=== PATIENT | female | born 1990 | race Caucasian/White ===

== ENCOUNTER 2018-02-13 20:40 | Emergency (ER) | payer OTHER, SELFPAY ==
[2018-02-13 20:42] VITALS: BP 113/70; PULSE 88; RESP 17; TEMP 36.4; O2SAT 100; BMI 23.9
--- NOTE | 2018-02-13 21:48 | US_ITS ---
STUDY: VENOUS DOPPLER ULTRASOUND - LEFT LOWER EXTREMITY REASON FOR EXAM: Female, 28 years old. Left leg pain. TECHNIQUE: Ultrasound evaluation of the deep vein system to include gusman-scale imaging and compression was performed. Gusman-scale imaging and Doppler sonographic evaluation, including duplex spectral analysis and qualitative color flow sonography, was performed. COMPARISON: None. FINDINGS: Common Femoral Vein: Normal compression, spontaneity and augmentation. Normal color Doppler. Common Femoral Vein/Greater Saphenous Junction: Normal compression, spontaneity and augmentation. Normal color Doppler. Deep Femoral Vein: Normal compression, spontaneity and augmentation. Normal color Doppler. Femoral Proximal: Normal compression, spontaneity and augmentation. Normal color Doppler. Femoral Middle: Normal compression, spontaneity and augmentation. Normal color Doppler. Femoral Distal: Normal compression, spontaneity and augmentation. Normal color Doppler. Popliteal Vein: Normal compression, spontaneity and augmentation. Normal color Doppler. Posterior Tibial Vein: Normal compression and spontaneity . Peroneal Vein: Normal compression and spontaneity. Within the region of pain within the posterior thigh there are thrombosed superficial veins. US/Venous Duplex Imag/Limited/Uni IMPRESSION: Thrombosed superficial veins within the posterior thigh. No DVT. Electronically Signed: Kalani Perkins MD at 22:29 EDT Tel , Service support ,
--- NOTE | 2018-02-13 22:27 | ED.VISSUMM ---
- ER Visit Summary Date of Service: 02/13/18 Chief Complaint: [Swelling left leg] History of Present Illness: The patient is a 28 F [presents to the emergency department swelling to the left leg that she noticed yesterday. Patient states that she has varicose vein history. Patient has had superficial phlebitis with prior pregnancies. Patient denies any chest pain or shortness of breath. Patient is 28 weeks .] Physical Examination: [HEENT-PERRLA, EOMI. Cranial nerves II through XII grossly intact. TMs clear. Mucous membranes moist. No adenopathy. Cardiovascular-regular rate and rhythm without murmur or ectopy Lungs-clear to auscultation, chest wall stable without crepitus or subcu emphysema Abdomen-normoactive bowel sounds, soft, nontender, no rebound or rigidity, no peritoneal signs. Extremities-intact ?4, normal range of motion, normal pulses, atraumatic. Left leg-patient has multiple varicosities noted diffusely about the left leg. Patient has some swelling and firmness noted to the varicosities to the posterior distal left thigh with some faint erythema. Patient nervously intact distally.] Test Results: [Venous duplex of the left lower extremity showed superficial phlebitis no DVT noted.] Emergency Department Course and Treatment: [Patient advised to use warm compresses to the area. Given that she is 28 weeks I advised against anti-inflammatories.] Treatment Plan: [Patient to follow-up with her primary care physician within next 5-7 days.] Disposition: [Discharged to home in stable condition Impression: [Superficial thrombophlebitis left leg] This note was generated with [employer] dictation software. It may contain incorrect words, spelling, and punctuation that were not noted in review of the chart prior to signing ED Disposition - Plan for ED Patient: Chief Complaint: Lower Extremity Injury Referrals: Maico Bunch MD [Primary Care Provider] -
--- NOTE | 2018-02-13 22:29 | ED.DEP ---
ED Disposition - Plan for ED Patient: Chief Complaint: Lower Extremity Injury Instructions: ED Phlebitis Superficial Referrals: Maico Bunch MD [Primary Care Provider] - 5-7 Days
[2018-02-13 22:44] VITALS: BP 115/75; PULSE 65; RESP 17; O2SAT 99
== END 2018-02-13 22:47 | disposition home or self-care (01) ==
PROVIDERS: Emergency Provider Emergency Medicine; Family Provider Family Medicine; PCP Family Medicine
DX: O22.22 Superficial thrombophlebitis in pregnancy, second trimester (principal); I80.02 Phlebitis and thrombophlebitis of superficial vessels of left lower extremity; Z3A.28 28 weeks gestation of pregnancy
CPT/HCPCS: 93971; 99282

== ENCOUNTER 2020-09-07 18:58 | Emergency (ER) | payer OTHER, SELFPAY ==
[2020-09-07 18:59] VITALS: BP 111/68; PULSE 96; RESP 17; TEMP 36.2; O2SAT 99; BMI 24.6
--- NOTE | 2020-09-07 19:45 | ED.DCSUM_ITS ---
History of Present Illness Chief Complaint: Lower Extremity Injury Informant: Patient Narrative: Patient is a 30-year-old previously healthy female who presents to the emergency department at 23 weeks . This is her seventh . She was sent in by the jewelry engraver to evaluate for DVT. On the upper inner thigh she has had redness, swelling and pain. He does have a history of superficial blood clots during her pregnancies before in the past. She does have varicose veins of her lower extremities bilaterally. She denies having any chest pain or shortness of breath. No cough, cold, congestion. No fevers or chills. She denies any abdominal pain/cramping. No vaginal bleeding or discharge. She is not on any anticoagulation medications. Never treated medically for the superficial blood clots in her legs before. Past Medical History - Allergies and Home Meds Allergies/Adverse Reactions: Allergies No Known Allergies Allergy (Verified 09/07/20 18:59) Primary Care Physician: Maico Bunch MD [Primary Care Provider] - 3-5 Days Prior records reviewed: Yes Past Medical History: None Smoking Status: Never smoker Review of Systems All systems negative except as indicated General: Denies: Chills, Fever, Sweats Eyes: Denies: Visual changes - bilaterally, Diplopia ENT: Denies: Rhinorrhea, Sore throat Cardiovascular: Denies: Chest pain, Palpitations Respiratory: Denies: Dyspnea, Cough, Dyspnea on exertion Gastrointestinal: Denies: Abdominal pain, Nausea, Vomiting, Diarrhea Genitourinary: Denies: Dysuria, Hematuria, Frequency Musculoskeletal: Reports: Swelling, Extremity Pain. Denies: Back pain Skin: Denies: Rash, Wounds Neurological: Denies: Headache, Weakness, Numbness Physical Exam Vital Signs/Narrative: Vital Signs Temp Pulse Resp BP Pulse Ox 09/07/20 18:59 97.1 F L 96 17 111/68 99 Inital Vital Signs reviewed: Yes General: Well nourished, Well developed, No Acute Distress Head: Normocephalic, Atraumatic Eyes: Perrl, EOMI ENT: Moist mucous membranes, No rhinorrhea Neck: Supple, Nontender Cardiovascular: Regular rate, Regular rhythm, No murmurs Respiratory: No distress, CTA bilaterally, Chest nontender Abdomen: Soft, Nontender, Nondistended, Normal bowel sounds, - - Gravid abdomen Back: Nontender, Normal Inspection Extremities: - - Area of erythema, tenderness. This is overlying varicosities of the left upper medial thigh. No calf tenderness or peripheral edema. Neurovascular intact. 5 out of 5 muscle strength lower extremities. Skin: No rash Neurological: Alert, Oriented x3, Cranial nerves II-XII grossly intact, Normal Strength, Normal Sensation Psychological: Normal affect, Normal Mood Diagnostic/Tx/Re-eval - Medical Decision Making Patient presents the emergency department to be evaluated for potential DVT. Physical exam is consistent more with a superficial thrombophlebitis. Ultrasound of the lower extremity not show any evidence of DVT. It was consistent with superficial thrombophlebitis. Will recommend symptomatic treatment. Since she is she can take Tylenol but no anti- inflammatories. She is recommended to use warm compresses. She is to follow-up with her PCP. Warning signs and symptoms for which to return to the ED were discussed with her. She understands and is agreeable this plan. Patient discharged home in stable condition. ED Disposition - Plan for ED Patient: Disposition: Home or Assisted Living Diagnosis: Superficial thrombophlebitis during Instructions: ED Phlebitis Superficial Referrals: Maico Bunch MD [Primary Care Provider] - 3-5 Days
--- NOTE | 2020-09-07 19:48 | US_ITS ---
STUDY: VENOUS DOPPLER ULTRASOUND - LEFT LOWER EXTREMITY REASON FOR EXAM: Female, 30 years old. LT INNER UPPER THIGH REDNESS AND TENDERNESS PT 24 WEEKS TECHNIQUE: Ultrasound evaluation of the deep vein system to include gusman-scale imaging and compression was performed. Gusman-scale imaging and Doppler sonographic evaluation, including duplex spectral analysis and qualitative color flow sonography, was performed. COMPARISON: None. FINDINGS: Left inguinal lymphadenopathy is present which is likely reactive. The left greater saphenous vein is filled with thrombus compatible with superficial thrombophlebitis. Several superficial varicose veins are also seen in the left thigh. Common Femoral Vein: Normal compression, spontaneity and augmentation. Normal color Doppler. Common Femoral Vein/Greater Saphenous Junction: Normal compression, spontaneity and augmentation. Normal color Doppler. Femoral Proximal: Normal compression, spontaneity and augmentation. Normal color Doppler. Femoral Middle: Normal compression, spontaneity and augmentation. Normal color Doppler. Femoral Distal: Normal compression, spontaneity and augmentation. Normal color Doppler. Popliteal Vein: Normal compression, spontaneity and augmentation. Normal color Doppler. Posterior Tibial Vein: Normal compression, spontaneity and augmentation. Normal color Doppler. Peroneal Vein: Normal compression, spontaneity and augmentation. Normal color Doppler. The right common femoral vein was evaluated and is normal. US/Venous Duplex Imag/Limited/Uni IMPRESSION: 1. Superficial thrombophlebitis of the left greater saphenous vein. 2. Reactive lymphadenopathy in the left inguinal region. 3. No deep venous thrombosis of the left leg. Electronically Signed: Silas Barajas MD at 20:58 EDT , Service support ,
== END 2020-09-07 21:01 | disposition home or self-care (01) ==
PROVIDERS: Emergency Provider Emergency Medicine; PCP Family Medicine
DX: O22.22 Superficial thrombophlebitis in pregnancy, second trimester (principal); Z3A.24 24 weeks gestation of pregnancy
CPT/HCPCS: 93971; 99282

== ENCOUNTER 2020-11-06 13:41 | Emergency (ER) | payer OTHER, SELFPAY ==
[2020-11-06 13:41] VITALS: BP 131/66; PULSE 94; RESP 17; TEMP 36.3; O2SAT 100; BMI 27.4
--- NOTE | 2020-11-06 14:00 | VDLE_ITS ---
Reason For Study: Pain Procedure LEFT This is a venous duplex using B-mode, color GSV is normal. flow and spectral Doppler. CFV is compressible, spontaneous, phasic, Exam performed portable in ED. competent, and demonstrates normal A preliminary report was called and/or faxed augmentation. to [facility]. FV is compressible, spontaneous, phasic, competent and demonstrates normal augmentation. POP V is compressible, spontaneous, phasic, competent and demonstrates normal augmentation. T/P Trunk is compressible. PTV is compressible. LT PerV is compressible. Acute superficial vein thrombosis is noted in the left mid SSV. Thrombus filled varicose veins noted throughout mid calf surrounding SSV. Interpretation Summary There is no evidence of left lower extremity deep vein thrombosis. Superficial thrombophlebitis left mid small saphenous vein and varicosities throughout the left mid calf at the site of small saphenous vein involvement. Patent and compressible left great saphenous vein Ordering Physician: Joshua Uriostegui Referring Physician: Maico Bunch Performed By: Damaris Pearl RVT
--- NOTE | 2020-11-06 14:00 | ED.DCSUM_ITS ---
History of Present Illness Chief Complaint: Lower Extremity Injury Informant: Patient Onset: Days - 2-3 Context: Gradual Onset Timing: Continuous Quality of Pain: - - sore Location: left calf, more peroneally Current Severity: Moderate Maximum Severity: Moderate Worsened by: nothing Relieved by: nothing Associated Symptoms: Negative for: Parasthesia, Weakness, Loss of Funtion Narrative: 30-year-old female with a history of varicose veins has had superficial venous thromboses in the past, presenting with pain in her left calf that occurred spontaneously within the last couple days and she is concerned about a blood clot. No history of a DVT. She is having no symptoms above the knee. She has chronic mild swelling in both ankles that is unchanged. She denies any chest pain, shortness of breath, palpitations, near-syncope or syncope. - Past Medical History (1) Varicose veins of both lower extremities Status: Chronic (2) Superficial vein thrombosis Status: Chronic Past Medical History - Allergies and Home Meds Allergies/Adverse Reactions: Allergies No Known Allergies Allergy (Verified 11/06/20 13:41) Primary Care Physician: Maico Bunch MD [Primary Care Provider] - Lives: With Family Smoking Status: Never smoker Review of Systems General: Denies: Chills, Fever, Sweats Eyes: Denies: Visual changes - bilaterally, Diplopia ENT: Denies: Rhinorrhea, Sore throat Cardiovascular: Denies: Chest pain, Palpitations Respiratory: Denies: Dyspnea, Cough, Dyspnea on exertion Gastrointestinal: Denies: Abdominal pain, Nausea, Vomiting, Diarrhea, Melena, Hematochezia Genitourinary: Denies: Dysuria, Hematuria, Frequency Musculoskeletal: Reports: Swelling, Extremity Pain. Denies: Myalgias, Back pain Skin: Denies: Rash, Wounds Neurological: Denies: Headache, Weakness, Numbness Physical Exam Vital Signs/Narrative: Vital Signs Temp Pulse Resp BP Pulse Ox 11/06/20 13:41 97.3 F L 94 17 131/66 H 100 Inital Vital Signs reviewed: Yes - Extremity Exam Left Tib Fib: Edema - Trace bilateral nonpitting symmetric, - - Positive Homans with left calf tenderness. Multiple venous varicosities, no erythema or signs of cellulitis or obvious palpable superficial thrombosis, but coincides with te nder calf. No tenderness on the right. No palpable cords. No tenderness about the knee.. Negative for: Limited ROM General: Well nourished, Well developed, - - Well-appearing no distress Head: Normocephalic, Atraumatic ENT: No Trauma, Moist Mucous Membranes Respiratory: No distress Abdomen: Soft, Nontender, - - Distended above the umbilicus consistent with gravid uterus Neurological: Alert, Oriented x3, Cranial nerves II-XII grossly intact, Normal Strength, Normal Sensation, Normal Gait Psychological: Normal affect, Normal Mood Diagnostic/Tx/Re-eval - Medical Decision Making Preliminary interpretation of venous evaluation left lower extremity shows superficial venous thrombosis without any deep vein involvement. Patient was reassured, advised to take a baby aspirin daily, and apply warm compresses to the affected area. There is no evidence of cellulitis or indication for antibiotics at this time. We discussed reasons to return she is comfortable with that plan will get some aspirin on the way home. ED Disposition - Plan for ED Patient: Disposition: Home or Assisted Living Diagnosis: Superficial vein thrombosis Instructions: ED Thrombophlebitis, Superficial Referrals: Maico Bunch MD [Primary Care Provider] - 1 Week if not improving Additional Instructions: Take baby aspirin 1 tablet daily. Apply warm compresses to affected area several times daily.
[2020-11-06 16:06] VITALS: BP 121/99; PULSE 81; RESP 16; O2SAT 99
== END 2020-11-06 16:07 | disposition home or self-care (01) ==
PROVIDERS: Emergency Provider Emergency Medicine; PCP Family Medicine
DX: I82.812 Embolism and thrombosis of superficial veins of left lower extremity (principal); Z86.718 Personal history of other venous thrombosis and embolism
CPT/HCPCS: 93971; 99282

== ENCOUNTER 2023-08-14 16:45 | Outpatient (CLI) | payer OTHER, SELFPAY ==
[2023-08-14] VITALS (19 sets, daily range): BP systolic 129; BP diastolic 77; PULSE 85–108; O2SAT 93–99; BMI 25.7
[2023-08-14 18:29] LABS: ROM Internal Control Test YES-OK TO RESULT pt. (Internal QC)
[2023-08-14 18:30] LABS: ROM Patient Test Negative (Negative); Record Kit Lot#, ROM+ K1409
[2023-08-14 18:38] LABS: Fetal Fibronectin Negative
--- NOTE | 2023-08-14 19:25 | OB.TRI.HP_ITS ---
HPI - General HPI Narrative MAX DONIS, is a 33 F at 22.3 weeks gestation who presents stating she thinks her water broke. Patient receives care from screenplay writer in [place], [place]. She has been seen this but no ultrasound completed to date. History of 21 week IUFD delivery last year. Denies any contractions or vaginal bleeding. Positive movement. Maternal Data Information AKANKSHA Calculator Estimated Delivery Date Method Current WG Current Estimate 12/13/23 Manual 22w 5d PFSH PFSH Home Medications proGESTerone .2 timesw week 08/14/23 [History Last Taken 08/11/23 21:00 100] Allergy/AdvReac Type Severity Reaction Status Date / Time No Known Allergies Allergy Verified 08/14/23 17:12 Social History Smoking Status: Never smoker ROS Eyes Eyes: Denies blurry vision Cardiovascular Cardiovascular: Reports none; Denies chest pain at rest, chest pain with activity or dizziness Respiratory/Chest Respiratory/Chest: Denies cough or dyspnea Gastrointestinal Gastrointestinal: Reports none and other; Denies diarrhea or vomiting Genitourinary Genitourinary: Denies dysuria Musculoskeletal Musculoskeletal: Reports none Integumentary Integumentary: Reports none; Denies rash Neurologic Neurologic: Denies dizziness, headache(s) or other visual disturbances Psychiatric Psychiatric: Reports none Physical Exam Const alert and no apparent distress General Appearance: cooperative Orientation / Consciousness: awake Exam Limitations: no limitations HEENT normocephalic Eyes General Eye: normal appearance of both eyes Neck full ROM Chest inspection of chest normal Resp normal respiratory effort and normal air movement Effort and Inspection: symmetric chest movement Auscultation: clear to auscultation bilaterally Cardio regular rate GI soft to palpation, non-tender and non-distended Inspection: and other Back/Spine normal ROM Extremity full ROM, normal capillary refill and no calf tenderness Skin no rashes or lesions noted Neuro oriented x3 and CN's II-XII intact bilaterally Psych mental status grossly normal NST FHR Rate Baby A Baseline: 145 Assessment & Plan (1) 22 weeks gestation of : (2) with care elsewhere: (3) History of IUFD: PLAN: Plan ROM plus- NEGATIVE FHT 145 bpm No contractions FFN negative Reassurance provided. Reviewed option for co-care at [facility] during the - patient thankful for offer D/C home with follow up with air tube releaser this week
== END 2023-08-14 19:30 | disposition home or self-care (01) ==
LOC: WPOUT 16:52 → WP 16:53
PROVIDERS: PCP Family Medicine; Referring Provider Advanced Practice Midwife; Visit Provider Advanced Practice Midwife
DX: O47.02 False labor before 37 completed weeks of gestation, second trimester (principal); Z3A.22 22 weeks gestation of pregnancy
CPT/HCPCS: 59050; 82731; 84112; 99221; G0378